=== PATIENT | female | born 1955 | race Caucasian/White ===

== ENCOUNTER 2020-09-25 11:56 | Emergency (ER) | payer MEDICARE, OTHER ==
[~2020-09-25] VITALS: Ht 162 cm; Wt 92.0 kg
[~2020-09-25 11:56] MED LIST: ACYC400T PO; ATOM100C PO; CALC-6 PO; LEVO88TA26 PO; LISI10TA2 PO; MULT-974 PO; SULF-222 PO; VIT C PO; VIT1TABL93 PO; VITAMIN E PO
--- NOTE | 2020-09-25 12:41 | ED General ---
General Chief Complaint: General Problems/Pain Stated Complaint: SOB Nursing Triage Note: ARRIVED VIA AMB TO ROOM 09 ET SENT OVER BY Gina JACKSON. PT STATES SHE HAS BEEN DIZZY, SOA, LOW HR, DIARRHEA X1 MONTH. Nursing Sepsis Screen: No Definite Risk Source of Information: Patient Exam Limitations: No Limitations History of Present Illness Date Seen by Provider: Sep 25, 2020 Time Seen by Provider: 12:33 Initial Comments This is a well-appearing 65-year-old female who presents to the ER with complaints of diarrhea x1 month, dizziness, increase shortness of air with walking. Denies fever, chills, nausea, vomiting, abdominal pain, rashes. She did have her Moderna COVID vaccine in May and June 2020. No ill contacts. Allergies and Home Medications Allergies Coded Allergies: No Known Drug Allergies (Unverified , 09/30/13) Home Medications Acyclovir 400 Mg Tablet, 400 MG PO BID, (Reported) Atomoxetine Hcl 100 Mg Capsule, 100 MG PO DAILY, (Reported) Calcium Carbonate/Vitamin D3 1 Each Tablet, 2 EACH PO DAILY, (Reported) Levothyroxine Sodium 88 Mcg Tablet, 1 EACH PO DAILY, (Reported) Lisinopril 10 Mg Tablet, 20 MG PO DAILY, (Reported) Multivitamin 1 Each Tablet, 1 EACH PO DAILY, (Reported) Trimethoprim/Sulfamethoxazole 1 Ea Tablet, 1 EA PO BID Prescribed by: PAIGE ROBERTSON on 09/30/132250 Vit D3/Folic Acid/B2/B6/B12 1 Each Tablet, 1 EACH PO MON AND WED, (Reported) [Vit C] , 1,200 PO DAILY, (Reported) [Vitamin E] , 400 UNITS PO DAILY, (Reported) Patient Home Medication List Home Medication List Reviewed: Yes Review of Systems Review of Systems Constitutional: see HPI EENTM: no symptoms reported Respiratory: see HPI Cardiovascular: see HPI Gastrointestinal: see HPI Genitourinary: no symptoms reported Musculoskeletal: no symptoms reported Skin: no symptoms reported Psychiatric/Neurological: No Symptoms Reported Hematologic/Lymphatic: No Symptoms Reported Immunological/Allergic: no symptoms reported Past Raswdxd-Zompbr-Gmkwcr Hx Patient Social History Alcohol Use: Denies Use Smoking Status: Former Smoker Recent Infectious Disease Expo: No Past Medical History Surgeries: Yes (BARIATRIC SURG, VERICOSE ALISA SURG) Bowel Surgery Cardiac: Yes Atrial Fibrillation 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 oz. 83.047135ua; 35.00 BMI Method: General Appearance: No Apparent Distress, WD/WN Eyes: Bilateral Eye Normal Inspection, Bilateral Eye PERRL, Bilateral Eye EOMI HEENT: PERRL/EOMI, TMs Normal, Normal ENT Inspection, Pharynx Normal, Moist Mucous Membranes Neck: Full Range of Motion, Normal Inspection, Non Tender, Supple Respiratory: Lungs Clear, Normal Breath Sounds, No Accessory Muscle Use, No Respiratory Distress Cardiovascular: No Gallop, No JVD, Normal Peripheral Pulses, Irregularly Irregular Gastrointestinal: Normal Bowel Sounds, Non Tender, Soft; No Distended, No Hepatomegaly, No Splenomegaly Rectal: Deferred Back: Normal Inspection Extremity: Normal Inspection, Normal Range of Motion, Non Tender, Pedal Edema (Trace bilateral lower extremities.) Neurologic/Psychiatric: Alert, Oriented x3, No Motor/Sensory Deficits, Normal Mood/Affect Skin: Normal Color, Warm/Dry Progress/Results/Core Measures Suspected Sepsis Recent Fever Within 48 Hours: No Infection Criteria Present: None New/Unexplained Altered Menta: No Sepsis Screen: No Definite Risk SIRS Temperature: Pulse: 57 Respiratory Rate: 16 Laboratory Tests 09/25/20 12:30: White Blood Count 10.1 Blood Pressure 118 /81 Mean: 93 Laboratory Tests 09/25/20 12:30: Creatinine 0.79, INR Comment 5.3*H, Platelet Count 290, Total Bilirubin 0.6 Results/Orders Lab Results Laboratory Tests Test 09/25/20 12:30 09/25/20 12:40 09/25/20 12:52 Range/Units White Blood Count 10.1 4.3-11.0 10^3/uL Red Blood Count 3.88 3.80-5.11 10^6/uL Hemoglobin 9.4 L 11.5-16.0 g/dL Hematocrit 32 L 35-52 % Mean Corpuscular Volume 82 80-99 fL Mean Corpuscular Hemoglobin 24 L 25-34 pg Mean Corpuscular Hemoglobin Concent 30 L 32-36 g/dL Red Cell Distribution Width 17.8 H 10.0-14.5 % Platelet Count 290 130-400 10^3/uL Mean Platelet Volume 10.0 9.0-12.2 fL Immature Granulocyte % (Auto) 0 % Neutrophils (%) (Auto) 67 42-75 % Lymphocytes (%) (Auto) 23 12-44 % Monocytes (%) (Auto) 9 0-12 % Eosinophils (%) (Auto) 1 0-10 % Basophils (%) (Auto) 0 0-10 % Neutrophils # (Auto) 6.8 1.8-7.8 10^3/uL Lymphocytes # (Auto) 2.3 1.0-4.0 10^3/uL Monocytes # (Auto) 0.9 0.0-1.0 10^3/uL Eosinophils # (Auto) 0.1 0.0-0.3 10^3/uL Basophils # (Auto) 0.0 0.0-0.1 10^3/uL Immature Granulocyte # (Auto) 0.0 0.0-0.1 10^3/uL Prothrombin Time 48.8 *H 12.2-14.7 SEC INR Comment 5.3 *H 0.8-1.4 D-Dimer <= 0.27 0.00-0.49 UG/ML Sodium Level 140 135-145 MMOL/L Potassium Level 4.1 3.6-5.0 MMOL/L Chloride Level 106 98-107 MMOL/L Carbon Dioxide Level 21 21-32 MMOL/L Anion Gap 13 5-14 MMOL/L Blood Urea Nitrogen 21 H 7-18 MG/DL Creatinine 0.79 0.60-1.30 MG/DL Estimat Glomerular Filtration Rate > 60 BUN/Creatinine Ratio 27 Glucose Level 85 70-105 MG/DL Calcium Level 9.1 8.5-10.1 MG/DL Corrected Calcium 9.3 8.5-10.1 MG/DL Total Bilirubin 0.6 0.1-1.0 MG/DL Aspartate Amino Transf (AST/SGOT) 36 H 5-34 U/L Alanine Aminotransferase (ALT/SGPT) 41 0-55 U/L Alkaline Phosphatase 87 40-136 U/L Troponin I < 0.028 <0.028 NG/ML B-Type Natriuretic Peptide 371.4 H <100.0 PG/ML Total Protein 6.6 6.4-8.2 GM/DL Albumin 3.8 3.2-4.5 GM/DL SARS-CoV-2 RNA (RT-PCR) Not Detected Not Detecte Urine Color YELLOW Urine Clarity CLEAR Urine pH 5.5 5-9 Urine Specific [place] <=1.005 1.016-1.022 Urine Protein NEGATIVE NEGATIVE Urine Glucose (UA) NEGATIVE NEGATIVE Urine Ketones NEGATIVE NEGATIVE Urine Nitrite NEGATIVE NEGATIVE Urine Bilirubin NEGATIVE NEGATIVE Urine Urobilinogen 0.2 < = 1.0 MG/DL Urine Leukocyte Esterase NEGATIVE NEGATIVE Urine RBC (Auto) NEGATIVE NEGATIVE Urine RBC NONE /HPF Urine WBC RARE /HPF Urine Squamous Epithelial Cells RARE /HPF Urine Crystals NONE /LPF Urine Bacteria NEGATIVE /HPF Urine Casts NONE /LPF Urine Mucus NEGATIVE /LPF Urine Culture Indicated NO My Orders Orders - HEATHER THEODORE APRN Ekg Tracing (09/25/20 12:03) Cbc With Automated Diff (09/25/20 12:41) Comprehensive Metabolic Panel (09/25/20 12:41) Ua Culture If Indicated (09/25/20 12:41) Covid 19 Inhouse Test (09/25/20 12:41) Troponin I (09/25/20 12:41) BNP (09/25/20 12:41) Protime With Inr (09/25/20 12:41) Chest 1 View, Ap/Pa Only (09/25/20 12:41) Fibrin Degradation Products (09/25/20 14:08) Vital Signs/I&O 09/25/20 09/25/20 12:15 15:05 Temp 36.1 Pulse 57 54 Resp 16 16 B/P (MAP) 118/81 (93) 119/72 Pulse Ox 96 98 O2 Delivery Room Air Room Air Capillary Refill : Less Than 3 Seconds Blood Pressure Mean: 93 Progress Note : Progress Note Patient examined and in no acute distress. After obtaining HPI and examining patient she notes that she did just come from her primary care office and was told to go to the ER because her pulse rate was low. States that in the office it was running 30 bpm. Upon arrival her pulse was initially mid 40s, however was sustaining around 55-60 at this time. Orders placed for basic labs, cardiac work-up, chest x-ray, INR as she currently takes warfarin daily. Unknown last echo. Orders placed for fecal WBCs, and stool culture. Labs reviewed she is noted to be supratherapeutic on her warfarin. Chest x-ray negative for acute pathology. Slight elevation in BNP. She is noted to be anemic with a hemoglobin of 9.8. No baseline labs available. Discussed holding her warfarin 2.5 mg for the next 2 days and following up with her primary care provider on Wednesday to have her labs redrawn. Discussed that her shortness of breath with activity could be related to her anemia however she may need to have an echo and should follow-up outpatient with her primary care provider for this. States that she is unable to provide stool sample as she went prior to arrival. Discussed with her that she can bring a sample back to the hospital or she can follow-up with her primary care provider. Reviewed discharge plan of care and she is agreeable with plan. ECG Initial ECG Impression Date: Sep 25, 2020 Initial ECG Impression Time: 12:16 Initial ECG Rate: 66 Initial ECG Rhythm: A Fib/Flutter Initial ECG Intervals Afib with RBB and LAFB. Initial ECG Impression: Normal Initial ECG Comparisson: No Previous ECG Available Diagnostic Imaging Diagonstic Imaging: Xray Plain Films/CT/US/NM/MRI: chest Comments NAME: RIK PARISI [facility] REC#: [id number] PT STATUS: REG ER : 1955 PHYSICIAN: HEATHER THEODORE RESIDENT CARE MANAGER RN ADMIT DATE: 09/25/20/ER Draft Date of Exam:09/25/20 CHEST 1 VIEW, AP/PA ONLY EXAMINATION: Portable erect AP chest at 156 hours. INDICATION: Shortness of breath. COMPARISON: There are no prior exams available for comparison. FINDINGS: The heart size is within normal limits. The lungs are clear. The osseous structures, where visualized, are intact. IMPRESSION: Negative for active disease. Dictated on workstation # [id number] Dict: 09/25/20 1357 Trans: 09/25/20 1359 [id number] Interpreted by: SIENNA HERNANDEZ MD Electronically signed by: Reviewed: Reviewed by Me Departure Impression Primary Impression: Chronic diarrhea Additional Impression: Supratherapeutic INR Disposition: 01 HOME, SELF-CARE Condition: Stable Departure-Patient Inst. Decision time for Depature: 14:03 Referrals: SAUL MCKEON MD (PCP) Primary Care Physician ALONSO BRITO (Family) Primary Care Physician Patient Instructions: Prothrombin Time (PT) Test and International Normalized Ratio (INR) Add. Discharge Instructions: 1. Hold your coumadin for 2 days and present to your primary care provider office to have your INR and Hgb rechecked. 2. You have been given supplies to provide a stool sample. You can bring this to the hospital or you can follow up with your physician. 3. Drink fluids with electrolytes. Limit the amount of salt you eat, this will help with swelling. 4. Return to ER for any new, concerning, or worsening symptoms. All discharge instructions reviewed with patient and/or family. Voiced understanding. Copy Copies To 1: ALONSO BRITO STORMY D RESIDENT CARE MANAGER RN Sep 25, 2020 12:41
[2020-09-25 12:52] LABS: BASOPHILS % (AUTO) 0 % (0-10); EOSINOPHILS # (AUTO) 0.1 10^3/uL (0.0-0.3); EOSINOPHILS % (AUTO) 1 % (0-10); HEMATOCRIT 32 % (35-52); HEMOGLOBIN 9.4 g/dL (11.5-16.0); LYMPHOCYTES # (AUTO) 2.3 10^3/uL (1.0-4.0); LYMPHOCYTES % (AUTO) 23 % (12-44); MEAN CORPUSCULAR HEMOGLOBIN 24 pg (25-34); MEAN CORPUSCULAR HGB CONC 30 g/dL (32-36); MEAN CORPUSCULAR VOLUME 82 fL (80-99); MONOCYTES # (AUTO) 0.9 10^3/uL (0.0-1.0); MONOCYTES % (AUTO) 9 % (0-12); NEUTROPHILS # (AUTO) 6.8 10^3/uL (1.8-7.8); NEUTROPHILS % (AUTO) 67 % (42-75); PLATELET COUNT 290 10^3/uL (130-400); WHITE BLOOD COUNT 10.1 10^3/uL (4.3-11.0)
[2020-09-25 12:54] LABS: ALBUMIN 3.8 GM/DL (3.2-4.5)
[2020-09-25 12:55] LABS: CHLORIDE 106 MMOL/L (98-107); POTASSIUM 4.1 MMOL/L (3.6-5.0); SODIUM 140 MMOL/L (135-145)
[2020-09-25 12:56] LABS: CALCIUM 9.1 MG/DL (8.5-10.1)
[2020-09-25 12:57] LABS: GLUCOSE 85 MG/DL (70-105); TOTAL PROTEIN 6.6 GM/DL (6.4-8.2)
[2020-09-25 12:58] LABS: CARBON DIOXIDE 21 MMOL/L (21-32)
[2020-09-25 12:59] LABS: BILIRUBIN,TOTAL 0.6 MG/DL (0.1-1.0)
[2020-09-25 13:00] LABS: ALKALINE PHOSPHATASE 87 U/L (40-136)
[2020-09-25 13:01] LABS: CREATININE SERUM 0.79 MG/DL (0.60-1.30); GFR ESTIMATED > 60
[2020-09-25 13:02] LABS: BILIRUBIN,URINE NEGATIVE (NEGATIVE); CLARITY,URINE CLEAR; COLOR,URINE YELLOW; GLUCOSE, URINE (UA) NEGATIVE (NEGATIVE); KETONES,URINE NEGATIVE (NEGATIVE); LEUKOCYTE ESTERASE ,URINE NEGATIVE (NEGATIVE); NITRITE,URINE NEGATIVE (NEGATIVE); PH,URINE 5.5 (5-9); PROTEIN,URINE NEGATIVE (NEGATIVE)
[2020-09-25 13:02] LABS: BUN/CREATININE RATIO 27
[2020-09-25 13:04] LABS: ALANINE AMINOTRANSFERASE 41 U/L (0-55)
[2020-09-25 13:06] LABS: INR 5.3 (0.8-1.4); PROTHROMBIN TIME PATIENT 48.8 SEC (12.2-14.7)
[2020-09-25 13:11] LABS: BACTERIA,URINE NEGATIVE /HPF; SQUAMOUS EPITHELIAL CELL,UR RARE /HPF; WBC,URINE RARE /HPF
--- NOTE | 2020-09-25 13:59 | Diagnostic Imaging Report ---
EXAMINATION: Portable erect AP chest at 156 hours. INDICATION: Shortness of breath. COMPARISON: There are no prior exams available for comparison. FINDINGS: The heart size is within normal limits. The lungs are clear. The osseous structures, where visualized, are intact. IMPRESSION: Negative for active disease. Dictated by: Dictated on workstation # [id number]
[2020-09-25 15:05] VITALS: BP 119/72
== END 2020-09-25 15:05 | disposition home or self-care (01) ==
LOC: EDUNIT# 11:56 → ER 11:57
DX: K52.9 Noninfective gastroenteritis and colitis, unspecified (principal); R79.1 Abnormal coagulation profile; Z20.822 Contact with and (suspected) exposure to COVID-19
CPT/HCPCS: 36415; 71045; 80053; 81000; 83880; 84484; 85025; 85379; 85610; 87636; 93005

== ENCOUNTER 2021-07-17 05:31 | Outpatient (CLI) | payer MEDICARE, OTHER ==
[~2021-07-17] VITALS: Ht 162.6 cm; Wt 88.0 kg
[2021-07-17] MEDS ORDERED: TUME1CAP PO (09:41)
[2021-07-17] MEDS ORDERED: FERR325T24 PO (09:41)
[2021-07-17] MEDS ORDERED: LEVO88TA68 PO (09:41)
[2021-07-17] MEDS ORDERED: GABA-486 PO (09:41)
[2021-07-17] MEDS ORDERED: DONE10TA41 PO (09:41)
[2021-07-17] MEDS ORDERED: RIVA20TA PO (09:41)
[2021-07-17] MEDS ORDERED: DILT240C87 PO (09:41)
[2021-07-17] MEDS ORDERED: MULT-593 PO (09:41)
[2021-07-17] MEDS ORDERED: ACHD5005 PO (09:41)
[2021-07-17] MEDS ORDERED: LUTE20TA PO (09:41)
[2021-07-17] MEDS ORDERED: ASCO500T16 PO (09:41)
[2021-07-17] MEDS ORDERED: FEXO-249 PO (09:41)
[2021-07-17] MEDS ORDERED: HYDR12.56 PO (09:41)
[2021-07-17] MEDS ORDERED: CYAN500011 PO (09:41)
[2021-07-17] MEDS ORDERED: MONT-40 PO (09:41)
== END 2021-07-17 12:56 | disposition home or self-care (01) ==
LOC: PREOP 05:31
PROVIDERS: ATTEND Internal Medicine
DX: Z01.818 Encounter for other preprocedural examination (principal)

== ENCOUNTER 2021-07-25 09:01 | Day surgery (SDC) | payer MEDICARE, OTHER ==
--- NOTE | 2021-07-17 09:53 | HISTORY AND PHYSICAL ---
DATE OF SERVICE: PANENDOSCOPY HISTORY AND PHYSICAL DATE OF ADMISSION: ____ HISTORY OF PRESENT ILLNESS: The patient is a 66-year-old white female referred by Dr. Moreira for her first screening colonoscopy as well as EGD. The patient reports she was recently diagnosed with anemia and has had longstanding epigastric and lower precordial discomfort compatible with reflux. Occasionally, she will have some mild food sticking sensation. She denies regurgitation. Continues to have difficulty with keeping her weight down, although she is still maintaining a significant weight loss from BPD bariatric surgery done in 2002 at [facility]. She has not noted melena or bright red blood per rectum. PAST SURGICAL HISTORY: Other than her BPD bariatric procedure, it is pertinent for several what sounds like small-bowel obstructions due to adhesions beginning several years after surgery. She also developed a significant abdominal wall hernia requiring mesh placement. It has been over five years since her last episode of lysis of adhesions. Denies any colon surgery. PAST MEDICAL HISTORY: Significant for rheumatoid arthritis for which she was on hydroxychloroquine and methotrexate. The methotrexate was discontinued as she has been having some nausea and this is improved without reported exacerbation of joint pain. She has a history of chronic atrial fibrillation for which she has been recently switched to Xarelto and history of hypertension and hypothyroidism as well as past history of deep vein thrombosis, provoked. SOCIAL HISTORY: The patient has worked in clerical work and medical insurance, has been out of the work force for a little while, but is going to be starting a new job in three to four weeks. She reports no past alcohol use, past [id number] smoking history, but quit in 2012. She does report a past history of amphetamine addiction many years ago, but has been free of that medication for over a decade. FAMILY HISTORY: She is not aware of any family history for colon cancer or GI tract malignancy. Father reportedly of a heart attack at a very young age of 26. Mother had CLL as well as dementia and hypertension. REVIEW OF SYSTEMS: CONSTITUTIONAL: The patient denies night sweats, chills, fever or change in weight. PULMONARY: Denies cough, wheezing or shortness of breath. CARDIOVASCULAR: Denies orthopnea, PND, pedal edema or dyspnea on exertion, also denies syncope. GASTROINTESTINAL: As noted in the HPI. PHYSICAL EXAMINATION: GENERAL: Reveals a pleasant white female, appears to be in no acute distress. VITAL SIGNS: Weight 191 pounds and blood pressure 110/80. HEENT: Unremarkable. CHEST: Clear. CARDIOVASCULAR: Reveals a regular rate and rhythm without significant murmur, S3 or S4. ABDOMEN: Soft and supple. Multiple abdominal scars. No mass, organomegaly or tenderness noted and no evidence for abdominal wall hernia. EXTREMITIES: Reveal no cyanosis, clubbing or edema. ASSESSMENT AND PLAN: The patient is being set up for her first screening colonoscopy as well as diagnostic EGD due to history of anemia, bariatric surgery and anticoagulant therapy. She will hold Xarelto 48 hours prior to the procedure, continuing her other current medication. Prep instructions with the Suprep kit were given and questions were answered. I thank you for the referral of this pleasant lady. Job ID: [id number] DocumentID: [id number] Dictated Date: 07/09/2021 18:05:15 Natural Resources Faculty Member Date: 07/09/2021 18:23:25 Dictated By: VIVIAN KUMARI MD
[~2021-07-25] VITALS: Ht 163 cm; Wt 88.0 kg
[~2021-07-25 09:01] MED LIST changes: +ACHD5005 PO; +ASCO500T16 PO; +CYAN500011 PO; +DILT240C87 PO; +DONE10TA41 PO; +FERR325T24 PO; +FEXO-249 PO; +GABA-486 PO; +HYDR12.56 PO; +LEVO88TA68 PO; +LUTE20TA PO; +MONT-40 PO; +MULT-593 PO; +RIVA20TA PO; +TUME1CAP PO
[2021-07-25] MEDS ORDERED: LACTATED RINGERS 1,000 ML IV ONE (09:04)
[2021-07-25] MEDS ORDERED: LACTATED RINGERS 1,000 ML IV STA (09:05)
[2021-07-25] MEDS ORDERED: LIDOCAINE JELLY 2% 6 ML SYRINGE MM PRN (09:15)
[2021-07-25] MEDS ORDERED: HURRICAINE EXT TUBE (BENZOCAINE) XX PRN (09:15)
[2021-07-25 09:30] VITALS: BP 124/82
--- NOTE | 2021-07-25 09:44 | Pre-Op Note & Conscious Sedat ---
Pre-Operative Progress Note H&P Reviewed The H&P was reviewed, patient examined and no changes noted. Date H&P Reviewed: Jul 25, 2021 Time H&P Reviewed: 09:43 Conscious Sedation Pre-Proced ASA Score 2 For ASA 3 and 4: Consider anesthesia and medical clearance. Also, for patients with a history of failed moderate sedation consider anesthesia. Airway Lungs Heart ASA score ASA 1: a normal healthy patient ASA 2: a patient with a mild systemic disease (mid diabetes, controlled hypertension, obesity ASA 3: a patient with a severe systemic disease that limits activity (angina, COPD, prior Myocardial infarction) ASA 4: a patient with an incapacitating disease that is a constant threat to life (CHF, renal failure) ASA 5: a moribund patient not expected to survive 24 hrs. (ruptured aneurysm) ASA 6: a declared brain- patient whose organs are being harvested. For emergent operations, add the letter E after the classification Mallampati Classification Grade 2 Sedation Plan Analgesia, Amnesia, Plan communicated to team members, Discussed options with patient/fam, Discussed risks with patient/fam The patient is an appropriate candidate to undergo the planned procedure, sedation, and anesthesia. The patient immediately re-assessed prior to indication. VIVIAN KUMARI MD Jul 25, 2021 09:44
[2021-07-25] MEDS ORDERED: MIDAZOLAM 2 MG/2 ML (VERSED) VIAL ONE (09:46)
[2021-07-25] MEDS ORDERED: PROPOFOL INJECTION 50 ML IV ONE ×2 (09:46→10:17)
[2021-07-25] MEDS ORDERED: PHENYLEPHRINE 100 MCG/ML 10 ML (ANESTHESIA) SYR ONE (10:11)
[2021-07-25 10:30] VITALS: BP 104/55
[2021-07-25 10:35] VITALS: BP 99/54
[2021-07-25 10:40] VITALS: BP_SYST 118; BP_SYST 134; BP_DIAS 65; BP_DIAS 72
[2021-07-25 11:00] VITALS: BP 118/65
--- NOTE | 2021-07-25 12:10 | Anesthesia-General Post-Op ---
MAC Patient Condition Mental Status/LOC: Same as Preop Cardiovascular: Satisfactory Nausea/Vomiting: Absent Respiratory: Satisfactory Pain: Controlled Complications: Absent Post Op Complications Complications None Follow Up Care/Instructions Patient Instructions None needed. Anesthesiology Discharge Order Discharge Order Patient is doing well, no complaints, stable vital signs, no apparent adverse anesthesia problems. No complications reported per nursing. DARREN ARMAS CRNA Jul 25, 2021 12:10
--- NOTE | 2021-07-25 15:18 | OPERATIVE REPORT ---
DATE OF SERVICE: 07/25/2021 PANENDOSCOPY SUMMARY INDICATION FOR THE PROCEDURE: Screening colonoscopy and diagnostic EGD due to history of anemia and dysphagia. The patient was placed in the left lateral decubitus position. The endoscope was inserted in the oral cavity and under direct visualization, esophagus was intubated. Endoscope was passed down the esophagus through stomach and into the duodenum. Careful inspection was made as the endoscope was withdrawn. FINDINGS: The posterior pharynx, epiglottis, true and false vocal folds and arytenoid aperture were unremarkable to visual inspection. The proximal, mid and distal esophagus were unremarkable. No evidence for extrinsic compression. No evidence to suggest Macias's or erosive esophagitis noted. No evidence for hiatal hernia formation. The cardia and fundus of the stomach were unremarkable. There is evidence for antrectomy with findings compatible with BPD, bariatric surgery. No evidence for peptic ulcer disease was noted. No evidence for blood in the upper GI tract was noted. ASSESSMENT: Typical postoperative findings of BPD bariatric surgery are present with no evidence for ulceration. There is no evidence to suggest erosive esophagitis or Macias's change and no potential bleeding sites being identified. DESCRIPTION OF PROCEDURE: Prior to undergoing colonoscopy, digital rectal evaluation was performed. Anal sphincter tone was normal and the perianal reflexes intact. No abnormalities noted on digital inspection of the anal canal or distal rectal vault. The colonoscope was then inserted into the rectum and under direct visualization advanced to cecum. The cecum was identified by identification of ileocecal valve and cecal strap. Photographic documentation was obtained. Careful inspection was made as colonoscope withdrawn. The procedure was done under [employer]. Quality of the prep was, at best fair. FINDINGS: There were no evidence for internal or external hemorrhoids and the rectum, sigmoid colon, descending colon, splenic flexure, transverse colon, hepatic flexure, ascending colon, and cecum were unremarkable. ASSESSMENT: Normal colonoscopy to the cecum. We would advocate consideration for repeat screening colonoscopy in 10 years. Job ID: [id number] DocumentID: [id number] Dictated Date: 07/25/2021 10:37:52 Foot Orthopedist Date: 07/25/2021 15:17:34 Dictated By: VIVIAN KUMARI MD
== END 2021-07-25 11:18 | disposition home or self-care (01) ==
LOC: ENDO 09:01
PROVIDERS: ATTEND Internal Medicine
DX: Z12.11 Encounter for screening for malignant neoplasm of colon (principal); D64.9 Anemia, unspecified; I48.20 Chronic atrial fibrillation, unspecified; R13.10 Dysphagia, unspecified; Z98.84 Bariatric surgery status; Z79.01 Long term (current) use of anticoagulants
CPT/HCPCS: 43235; G0121

== ENCOUNTER → 2021-07-31 | Outpatient (CLI) | payer MEDICARE, OTHER ==
[2021-07-31 12:11] LABS: ALBUMIN 4.2 GM/DL (3.2-4.5); POTASSIUM 3.7 MMOL/L (3.6-5.0)
[2021-07-31 12:12] LABS: CALCIUM 8.5 MG/DL (8.5-10.1)
[2021-07-31 12:14] LABS: ABSOLUTE RETIC # 48 10e9/uL (24-90); BASOPHILS % (AUTO) 0 % (0-10); EOSINOPHILS # (AUTO) 0.1 10^3/uL (0.0-0.3); EOSINOPHILS % (AUTO) 1 % (0-10); HEMATOCRIT 35 % (35-52); HEMOGLOBIN 10.3 g/dL (11.5-16.0); LYMPHOCYTES # (AUTO) 2.6 10^3/uL (1.0-4.0); LYMPHOCYTES % (AUTO) 27 % (12-44); MEAN CORPUSCULAR HEMOGLOBIN 22 pg (25-34); MEAN CORPUSCULAR HGB CONC 30 g/dL (32-36); MEAN CORPUSCULAR VOLUME 75 fL (80-99); MEAN PLATELET VOLUME 9.8 fL (9.0-12.2); MONOCYTES # (AUTO) 0.7 10^3/uL (0.0-1.0); MONOCYTES % (AUTO) 7 % (0-12); NEUTROPHILS # (AUTO) 6.2 10^3/uL (1.8-7.8); NEUTROPHILS % (AUTO) 64 % (42-75); PLATELET COUNT 308 10^3/uL (130-400); RETICULOCYTE % 1.02 % (0.50-2.40); TOTAL PROTEIN 6.9 GM/DL (6.4-8.2); WHITE BLOOD COUNT 9.7 10^3/uL (4.3-11.0)
[2021-07-31 12:15] LABS: BILIRUBIN,TOTAL 0.4 MG/DL (0.1-1.0)
[2021-07-31 12:17] LABS: CREATININE SERUM 0.72 MG/DL (0.60-1.30)
[2021-07-31 12:34] LABS: BASOPHILS % (MANUAL) 1 %; LYMPHOCYTES % (MANUAL) 25 %; MONOCYTES % (MANUAL) 8 %; NEUTROPHILS % (MANUAL) 66 %
[2021-07-31 12:35] LABS: ANISOCYTOSIS MODERATE; HYPOCHROMASIA MODERATE; MICROCYTOSIS SLIGHT; POIKILOCYTOSIS SLIGHT
== END ==
LOC: LAB
PROVIDERS: ATTEND Physician Assistant
DX: D51.9 Vitamin B12 deficiency anemia, unspecified (principal)
CPT/HCPCS: 36415; 80053; 82746; 83540; 85007; 85027; 85045; 85055

== ENCOUNTER 2022-03-20 11:39 | Emergency (ER) | payer MEDICARE, OTHER ==
[~2022-03-20] VITALS: Ht 162.6 cm; Wt 82.7 kg
[~2022-03-20 11:39] MED LIST changes: -FEXO-249 PO; +NF-ALLE180 PO
[2022-03-20] MEDS ORDERED: LIDOCAINE PF 2% 5 ML (XYLOCAINE) VIAL INH ONE ×2 (12:30→14:30)
[2022-03-20] MEDS ORDERED: LIDOCAINE/EPI 2% 1:100,00 (XYLOCAINE) 20 ML VIAL INJ ONE (12:30)
[2022-03-20] MEDS ORDERED: TETANUS,DIPTH,PERTUSS P/F (BOOSTRIX) 0.5 ML VIAL IM ONE (12:30)
--- NOTE | 2022-03-20 14:52 | ED Lower Extremity ---
General Chief Complaint: Laceration Stated Complaint: FALL | RT LEG PAIN Nursing Triage Note: pt states she fell while trying to stand on a chair and cut her right lower leg on the wooden chair Source: patient Exam Limitations: no limitations History of Present Illness Date Seen by Provider: Mar 21, 2022 Time Seen by Provider: 12:00 Initial Comments Patient is a 67-year-old female who presents to the emergency department for evaluation of a laceration on her right lower leg that occurred when she was standing on a chair putting up Ge decorations. She states she slipped backwards and lowered her foot to the ground. She states her lower leg scraped against the edge of the wooden chair causing the laceration. The injury occurred approximately an hour prior to arrival. Patient is currently on anticoagulants. She states she was able to get the bleeding controlled direct pressure. She denies any other injury. States she has full range of motion and sensation in her right lower leg. She is unsure of the date of her last tetanus immunization Allergies and Home Medications Allergies Coded Allergies: No Known Drug Allergies (Unverified , 09/30/13) Patient Home Medication List Home Medication List Reviewed: Yes Ascorbic Acid/Ascorbate Sodium (Vitamin C 500 mg Tablet Chew) 500 Mg Tab.chew, 500 MG PO DAILY, (Reported) Entered as Reported by: ELOISE GARRIDO on 07/17/21940 Cyanocobalamin (Vitamin B-12) (Vitamin B-12) 5,000 Mcg Capsule, 5,000 MCG PO DAILY, (Reported) Entered as Reported by: ELOISE GARRIDO on 07/17/21940 Diltiazem HCl (Diltiazem ER) 240 Mg Capsule.er, 240 MG PO DAILY, (Reported) Entered as Reported by: ELOISE GARRIDO on 07/17/21940 Donepezil HCl (Donepezil HCl) 10 Mg Tablet, 10 MG PO DAILY, (Reported) Entered as Reported by: ELOISE GARRIDO on 07/17/21940 Ferrous Sulfate (Ferosul) 325 Mg Tablet, 325 MG PO UD, (Reported) Entered as Reported by: ELOISE GARRIDO on 07/17/21940 Fexofenadine HCl (Fexofenadine HCl) 180 Mg Tablet, 180 MG PO DAILY, (Reported) Entered as Reported by: ELOISE GARRIDO on 07/17/21940 Gabapentin (Gabapentin) 100 Mg Capsule, 100 MG PO TID, (Reported) Entered as Reported by: ELOISE GARRIDO on 07/17/21940 Hydrochlorothiazide (Hydrochlorothiazide) 12.5 Mg Tablet, 12.5 MG PO DAILY, (Reported) Entered as Reported by: ELOISE GARRIDO on 07/17/21940 Hydrocodone/Acetaminophen (Hydrocodone-Acetamin 5-325 mg) 1 Each Tablet, 1 TAB PO Q4H PRN for PAIN-MODERATE (5-7), (Reported) Entered as Reported by: ELOISE GARRIDO on 07/17/21940 Levothyroxine Sodium (Euthyrox) 88 Mcg Tablet, 88 MCG PO DAILY, (Reported) Entered as Reported by: ELOISE GARRIDO on 07/17/21940 Lutein (Lutein) 20 Mg Tablet, 20 MG PO DAILY, (Reported) Entered as Reported by: ELOISE GARRIDO on 07/17/21940 Montelukast Sodium (Montelukast Sodium) 10 Mg Tablet, 10 MG PO DAILY, (Reported) Entered as Reported by: ELOISE GARRIDO on 07/17/21940 Multivitamin with Minerals (Multiple Vitamin) 1 Each Tablet, 1 EACH PO DAILY, (Reported) Entered as Reported by: ELOISE GARRIDO on 07/17/21940 Rivaroxaban (Xarelto) 20 Mg Tablet, 20 MG PO DAILY, (Reported) Entered as Reported by: ELOISE GARRIDO on 07/17/21940 Tumeric/Ging/Elizabeth/Oreg/Capryl (Candicidal Capsule) 1 Each Capsule, 1 EACH PO DAILY, (Reported) Entered as Reported by: ELOISE GARRIDO on 07/17/21940 Review of Systems Constitutional: no symptoms reported EENTM: no symptoms reported Respiratory: no symptoms reported Cardiovascular: no symptoms reported Gastrointestinal: no symptoms reported Genitourinary: no symptoms reported Musculoskeletal: no symptoms reported Skin: see HPI Psychiatric/Neurological: No Symptoms Reported Past Hmbttgx-Envlud-[place] Hx Patient Social History Tobacco Use?: No Smoking Status: Former Smoker Substance use?: No Alcohol Use?: No Immunizations Up To Date Influenza Vaccine Up-to-Date: Yes; Up-to-Date First/Initial COVID19 Vaccinat: JUNE 2020 Second COVID19 Vaccination Keven: JULY 2020 Third COVID19 Vaccination Date: NO Seasonal Allergies Seasonal Allergies: No Past Medical History Surgeries: Yes (BARIATRIC SURG, VERICOSE ALISA SURG) Bowel Surgery Respiratory: Yes Sleep Apnea Cardiac: Yes Atrial Fibrillation Neurological: No RN RESIDENTIAL History: Menopausal Genitourinary: No Gastrointestinal: Yes (BOWEL OBSTRUCTION) Hiatal Hernia Musculoskeletal: No Endocrine: No HEENT: No Cancer: No Psychosocial: No Integumentary: No Blood Disorders: No Physical Exam Vital Signs Vital Signs - First Documented 03/20/22 03/20/22 11:57 15:09 Temp 36.8 Pulse 75 Resp 16 B/P (MAP) 139/88 (105) Pulse Ox 96 O2 Delivery Room Air Capillary Refill : Height, Weight, BMI Height: 5'5" Weight: 183lbs. oz. 83.995526hm; 31.00 BMI Method: General Appearance: WD/WN, no apparent distress HEENT: PERRL/EOMI, normal ENT inspection, TMs normal, pharynx normal Neck: non-tender, full range of motion, supple, normal inspection Cardiovascular: regular rate, rhythm Respiratory: chest non-tender, lungs clear, normal breath sounds, no respiratory distress, no accessory muscle use Gastrointestinal: normal bowel sounds, non tender, soft Neurologic/Psychiatric: no motor/sensory deficits, alert, normal mood/affect, oriented x 3 8 cm laceration noted to the anterior aspect of the right lower leg; laceration is stellate with a large triangular shape of avulsed skin Procedures/Interventions Wound Location: Lower Extremities Other Wound Location Right anterior lower leg Wound Length (cm): 8 Wound's Depth, Shape: superficial, flap, stellate Wound Explored: clean Irrigated w/ Saline (ccs): 100 Betadine Prep?: No Anesthesia: 1% Lidocaine Volume Anesthetic (ccs): 11 Wound Debrided: minimal Suture: Prolene Suture Size: 4-0 Number of Sutures: 12 Layer Closure?: 1 Progress Combination of horizontal mattress and simple interrupted sutures used; multiple sutures had to be placed multiple times due to tear out of the skin; due to the avulsed nature of the skin, complete approximation was not possible due to the skin not tolerating the tension Progress/Results/Core Measures Results/Orders My Orders Orders - JUAN MANUEL MONGE APRN Lidocaine/Epi 2% 1:100,000 (Xylocaine/Ep (03/20/22 12:30) Dipht,Pertuss(Acell),Tet Adult (Boostrix (03/20/22 12:30) Lidocaine 2% Pf 5 Ml (Xylocaine 2% Pf) (03/20/22 12:30) Lidocaine 2% Pf 5 Ml (Xylocaine 2% Pf) (03/20/22 14:30) Medications Given in ED Vital Signs/I&O 03/20/22 03/20/22 11:57 15:09 Temp 36.8 36.1 Pulse 75 84 Resp 16 19 B/P (MAP) 139/88 (105) 144/81 Pulse Ox 96 97 O2 Delivery Room Air Blood Pressure Mean: 105 Progress Progress Note : Progress Note Patient is nontoxic and well-hydrated on exam. Laceration was repaired as noted separately. This was very complex and complete approximation was not possible due to friability of the skin and the degree of tension required to fully close the wound. Approximation was obtained is closely as well as allowed. Tetanus immunization was updated. Discussed supportive care and anticipatory guidance. Patient verbalized understanding. Follow-up in 10 to 14 days for suture removal. Departure Impression Primary Impression: Laceration of right lower leg Qualified Codes: S81.811A - Laceration without foreign body, right lower leg, initial encounter Disposition: 01 HOME, SELF-CARE Condition: Stable Departure-Patient Inst. Decision time for Depature: 14:50 Referrals: SAUL MCKEON MD (PCP) Primary Care Physician ALONSO BRITO (Family) Primary Care Physician Patient Instructions: Laceration Repair With Stitches ED Add. Discharge Instructions: You will need to have your stitches removed in 10 to 14 days. All discharge instructions reviewed with patient and/or family. Voiced understanding. JUAN MANUEL MONGE ALMOND PASTE MOLDER Mar 20, 2022 14:52
[2022-03-20 15:09] VITALS: BP 144/81
== END 2022-03-20 15:11 | disposition home or self-care (01) ==
LOC: EDUNIT# 11:39 → ER 11:41
DX: S81.811A Laceration without foreign body, right lower leg, initial encounter (principal); I48.91 Unspecified atrial fibrillation; Z87.891 Personal history of nicotine dependence; Z23 Encounter for immunization; Z79.01 Long term (current) use of anticoagulants; W26.8XXA Contact with other sharp object(s), not elsewhere classified, initial encounter
CPT/HCPCS: 12034; 90715